=== PATIENT | female | born 1960 | race Caucasian/White ===

== ENCOUNTER 2019-05-02 23:37 | Inpatient (IN) | payer OTHER ==
[~2019-05-02] VITALS: Ht 160 cm; Wt 83.9 kg
[~2019-05-02 23:37] MED LIST: COZAAR50 MG PO
[2019-05-02] MEDS ORDERED: TOPROL XL25 M1 (23:48)
[2019-05-05] MEDS ORDERED: AMOX1TAB5 PO (12:56)
[2019-05-05] MEDS ORDERED: VOLTAREN-XR100 MG PO (12:57)
== END 2019-05-05 14:29 | disposition home or self-care (01) | DRG 446 ==
LOC: ER 23:37 → SEC-K 05-03 07:13 → SURH 05-03 07:13
PROVIDERS: ADMIT Student in an Organized Health Care Education/Training Program
PROC: BW40ZZZ Ultrasonography of Abdomen (ICD-10-PCS; principal; 2019-05-03)
PROC: BF37ZZZ Magnetic Resonance Imaging (MRI) of Pancreas (ICD-10-PCS; 2019-05-03)
PROC: BF37ZZZ Magnetic Resonance Imaging (MRI) of Pancreas (ICD-10-PCS; 2019-05-04)
DX: K80.00 Calculus of gallbladder with acute cholecystitis without obstruction (principal)

== ENCOUNTER 2025-07-19 16:22 | Outpatient (CLI) | payer OTHER ==
[~2025-07-19 16:22] MED LIST changes: +AMOX1TAB5 PO; +TOPROL XL25 M1; +VOLTAREN-XR100 MG PO
== END 2025-07-19 16:30 | disposition home or self-care (01) ==
LOC: RAD 16:22
DX: M54.12 Radiculopathy, cervical region (principal); M25.511 Pain in right shoulder